=== PATIENT | female | born 1970 | race Caucasian/White ===

== ENCOUNTER → 2017-10-01 | Outpatient (CLI) | payer OTHER | LOC: FIMAGING 11:16 | PROVIDERS: ATTEND Family Medicine | DX: Z12.31 Encounter for screening mammogram for malignant neoplasm of breast (principal) | CPT/HCPCS: G0202 ==

== ENCOUNTER → 2018-12-01 | Outpatient (CLI) | payer OTHER | LOC: FIMAGING 08:43 | PROVIDERS: ATTEND Obstetrics & Gynecology | DX: Z12.31 Encounter for screening mammogram for malignant neoplasm of breast (principal) ==

== ENCOUNTER 2019-03-10 05:45 | Day surgery (SDC) | payer OTHER ==
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
[2019-03-10] MEDS ORDERED: LR 1,000 ML IV ONE (06:03)
[2019-03-10] MEDS ORDERED: SILVER NITRATE APPLICATOR 1 APPL TP ONE (06:56)
[2019-03-10] MEDS ORDERED: DOXYCYCLINE INJ 100 MG in NS 250 ML IV SCH (07:00)
[2019-03-10] MEDS ORDERED: MIDAZOLAM 2 MG/2 ML VIAL IVP ONE (07:07)
[2019-03-10] MEDS ORDERED: MIDAZOLAM 2 MG/2 ML VIAL ONE (07:10)
--- NOTE | 2019-03-10 07:13 | PDHPUP ---
History & Physical Update H&P update statement: This history and physical update is based on an assessment of the patient which was completed after admission or registration (within 24 hours), but prior to the surgery/procedure. H&P update: H&P reviewed & patient examined, no change in patient's condition since H&P completed
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
[2019-03-10] MEDS ORDERED: PROPOFOL/EMULSION 500 MG/50 ML BOTTLE IV ONE (07:22)
[2019-03-10] MEDS ORDERED: fentaNYL 100 MCG/2 ML INJ ONE (07:22)
[2019-03-10] MEDS ORDERED: DEXAMETHASONE 4 MG/ML VIAL ONE (07:44)
[2019-03-10] MEDS ORDERED: PHENYLEPHRINE HCL 100 MCG/ML SYR ONE (07:44)
[2019-03-10] MEDS ORDERED: LIDOCAINE 2% 5 ML SDV ONE (07:45)
[2019-03-10] MEDS ORDERED: KETOROLAC 30 MG/1 ML SDV ONE (07:59)
[2019-03-10] MEDS ORDERED: HYDROCODONE/APAP 5/325 TAB PO PRN ×2 (08:11→08:39)
--- NOTE | 2019-03-10 08:11 | POSTOPPROG ---
Post Op Note Date of Operation: 03/10/19 Surgeon: Keira Chand Anesthesiologist: Dr. Purnima Asher Anesthesia: GET(General Endotracheal) (with LMA) Pre-op Diagnosis: menorrhagia Post-op Diagnosis: same Procedure: Hysteroscopy D and C, Asuncion endometrial ablation Findings: normal uterine cavity Inf/Abcess present in the surg proc area at time of surgery?: No Depth: Organ Space EBL: Minimal Total fluids administered: 550 Complications: none Bowel Protocol: No Clean Closure Performed: N/A Specimen(s): endometrial curettings
[2019-03-10] MEDS ORDERED: IBUPROFEN 600 MG TAB PO PRN (08:12)
[2019-03-10] MEDS ORDERED: fentaNYL 100 MCG/2 ML INJ IVP PRN (08:39)
[2019-03-10] MEDS ORDERED: NALOXONE HCL 0.4 MG/ML INJ IVP PRN (08:39)
[2019-03-10] MEDS ORDERED: ACETAMINOPHEN 500 MG TAB PO PRN (08:39)
[2019-03-10] MEDS ORDERED: oxyCODONE IR 5 MG TAB PO PRN (08:39)
[2019-03-10] MEDS ORDERED: PROMETHAZINE HCL 25 MG/ML INJ IVP PRN (08:39)
--- NOTE | 2019-03-10 08:40 | POSTANESTH ---
Post Anesthetic Evaluation Cardiovascular Status: Normal, Stable Respiratory Status: Normal, Stable Level of Consciousness/Mental Status: Can Participate in Eval Pain Control: Adequate, Prn Tx Ordered Nausea/Vomiting Control: Adequate, Prn Tx Ordered Complications Possibly Related to Anesthesia: None Noted
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
[2019-03-10] MEDS ORDERED: HYDROCODONE/APAP 5/325 TAB ONE (09:33)
[2019-03-10 09:35] VITALS: BP 101/62
== END 2019-03-10 10:10 | disposition home or self-care (01) ==
LOC: FSGY 05:45
PROVIDERS: ATTEND Obstetrics & Gynecology
PROC: 0U5B8ZZ Destruction of Endometrium, Via Natural or Artificial Opening Endoscopic (ICD-10-PCS; principal; 2019-03-10 07:15)
DX: N92.0 Excessive and frequent menstruation with regular cycle (principal); Z80.3 Family history of malignant neoplasm of breast
CPT/HCPCS: 58563; C1782; J1100; J1885; J2250; J2370; J2704; J3010